=== PATIENT | female | born 2000 | race Caucasian/White ===

== ENCOUNTER 2019-11-15 15:40 | Inpatient (IN) | payer MEDICAID, SELFPAY ==
[2019-11-15] VITALS (32 sets, daily range): BP systolic 92–142; BP diastolic 52–96; PULSE 70–110; TEMP 36.3–37.4; O2SAT 82–100; BMI 37.5
--- NOTE | 2019-11-15 14:59 | US_ITS ---
STUDY: SECOND AND THIRD TRIMESTER OBSTETRICAL ULTRASOUND - LIMITED REASON FOR EXAM: Female, 19 years old NO CARE GROWTH AND TESS, PT RUPTURED PRIOR ULTRASOUND: None. TECHNIQUE: Transabdominal real-time exam with forman scale image documentation. TECHNICAL QUALITY: Adequate. FINDINGS: There is a single intrauterine fetus. The fetus is in a cephalic presentation. There is demonstrated cardiac activity with a heart rate of 165 bpm. There is a normal amniotic fluid volume. The largest amniotic fluid pocket measures 3.8 x 2.1 cm. The amniotic fluid index (TESS) is 5.8 cm. The placenta is anterior and not low lying. There are Grade 1 placental changes. The cervix is not visualized. BIOMETRY: BPD: 9.16 cm: 37 weeks, 2 days HC: 32.6 cm: 37 weeks, 1 days AC: 32.5 cm: 36 weeks, 4 days FL: 7.36 cm: 37 weeks, 5 days age by current US: 37 weeks, 2 days. MAX by current US: 12/04/2019. Estimated weight: 3067 grams, +/- 448 grams. US/OB Limited With Biometrics IMPRESSION: Single living intrauterine fetus of 37 weeks and 2 days with an MAX of 12/04/2019. Estimated weight of 3067 g +/- 448 g. Amniotic fluid index of 5.8 cm, less than the 3rd percentile for 37 weeks. Grade 1, anterior and not low lying placenta. Electronically Signed: Cornelia Clay MD at 16:42 EDT , Service support ,
[2019-11-15] MEDS: Lactated Ringers 1,000 ML 50 ML IV (15:10)
[2019-11-15 15:35] LABS: Mucous, Urine 0 SEEN /hpf (<or=2+); Red Blood Cells-Urine 0 SEEN /hpf (0-5)
[2019-11-15 15:38] LABS: Absolute Lymphocyte Count 1.73 X10^3/uL (0.83-4.51); Absolute Neutrophil Count 6.9 X10^3/uL (2.0-7.7); Basophil# 0.06 X10^3/uL; Basophil% 0.6 % (0-1); Eosinophil# 0.32 X10^3/uL; Eosinophils% 3.2 % (0-5); Hematocrit 34.3 % (37-47); Hemoglobin 10.7 g/dL (12.0-15.0); Lymphocyte # 1.73 X10^3/ul (4.0); Lymphocyte % 17.2 % (19-41); Mean Corp Hgb Conc 31.2 g/dL (32-36); Mean Corpuscular Volume 80.1 fL (81-99); Mean Platelet Vol. 11.1 fl (6.2-12.0); Monocyte# 1.02 X10^3/uL; Monocyte% 10.1 % (0-10); NRBC Flagged by Analyzer 0 % (0-5); Neutrophil # 6.85 X10^3/uL (2.7-7.7); Neutrophil % 68.2 % (47-70); Platelet Count 292 K/mm3 (150-450); RBC Distribution Width CV 15.7 % (11.6-14.6); RBC Distribution Width SD 44.4 fl (35.1-43.9); Red Blood Count 4.28 M/mm3 (4.2-5.4); White Blood Count 10.1 K/mm3 (4.4-11.0)
[2019-11-15 15:43] LABS: ROM Internal Control Test YES-OK TO RESULT pt. (Internal QC)
[2019-11-15 15:44] LABS: ROM Patient Test POSITIVE (Negative)
[2019-11-15 16:28] LABS: Amphetamine Urine VISTA NEGATIVE (<1000 ng/mL); Barbiturate Urine VISTA NEGATIVE (< 200 ng/mL); Benzodiazepine Urine VISTA NEGATIVE (< 200 ng/mL); Cocaine Urine VISTA NEGATIVE (< 300 ng/mL); Ecstacy Urine VISTA NEGATIVE (< 500 ng/mL); Methadone Urine VISTA NEGATIVE (< 300 ng/mL); PCP Urine VISTA NEGATIVE (< 25 ng/mL); THC Urine VISTA NEGATIVE (< 50 ng/mL); Vista UDS pH Range 7
[2019-11-15 16:34] LABS: Rubella IgG 6.7 IU/mL
[2019-11-15 16:42] LABS: Group B Strep DNA By PCR Negative (Negative); Internal Control PASS; Probe Check PASS; Specimen Processing Control PASS
[2019-11-15 17:24] LABS: Chlamydia Trachomatis by PCR Negative (Negative); Neisserai gonorrhoeae by PCR Negative (Negative); Probe Check PASS; Sample Adequacy Control PASS; Specimen Processing Control PASS
--- NOTE | 2019-11-15 18:30 | CASEMGMT ---
Social Work Assessment Labor and Delivery Unit Patient Address: [address], [place], [place] [address] Phone number: [phone] Date of Referral: 11.15.2019 Time of Referral: 1634 Referred By: Miguel Montero RN Date of Intervention: 11.15.2019 Time of Intervention: [id number] Reason for Referral: no care, possible adoption History obtained from: medical records and mother of baby (MOB) Dain Dickinson; reported father of baby (FOB) Davian Horvath also present for parts of conversation. Household composition: MOB currently lives with her mother and MOB?s twin brother. FOB lives with his parents. MOB and FOB spend time at both homes. Patient's parent/guardian status: MOB is 19 year old single female, and FOB is a 24 year old single male. Together for a little over a year. This will be the first child for both. Medical History: VEENA is G1, P0. No care. Estimated to be 37 weeks at time of presentation in labor. MOB reports she has always had irregular periods and in August the FOB encouraged MOB to take a test due to the length of time since last known period. MOB reports she took 8 drug store tests which were all positive. MOB reports one factor impeding VEENA from seeking out medical care was the COVID-19 pandemic and MOB?s fear of going to a doctor?s office. 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 No reported issues with reading, writing, or learning comprehension. Financial Status: VEENA works at a [employer]. 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 Infant Supplies: none in place. Childcare/Caregiver(s): intending to make an adoption plan for baby. Transportation: Both VEENA and FOB drive. Programs/Agencies Involved: No agency involvement. VEENA is self-pay currently. Behavioral Health Issues: Mental Health History: MOB reports history of depression in 9th and 10th grades, no treatment history. Denies any history of suicidal thoughts, plans, intent or past attempts. Denies thoughts of hurting others. MOB does endorse history of trauma as a child, no descriptions provided. Substance Use History: VEENA reports limited social use of alcohol, reports last use was in the summer of 2018 when MOB was at a wedding. MOB denies use of illicit drugs including marijuana, meth, heroin, cocaine, or prescription type pills. No tobacco use. Family History: MOB describes her mother as ?strange.? MOB reports her biological father is not in the picture and spent time in shelter. Drug Screens: maternal drug screen negative upon admission. Family/Social Stressors: Unplanned , with late knowledge of occurring in August. No care sought as shortly after realization of , MOB?s stepfather who raised the MOB , so then MOB dealing with grief. MOB then became anxious about going to a doctor?s office due to the COVID pandemic. No insurance, limited finances, no planning for the baby. The only person MOB has talked to about this is FOB. Support Systems: MOB reports FOB has been supportive to MOB and has informed MOB that will support MOB in whatever MOB wants to do in regards to the baby. MOB denies any form of domestic violence, control, intimidation, or coercion on this relationship. ASSESSMENT: Met first with MOB alone and then with MOB and FOB together. Rapport building and information gathering with MOB, explored MOB?s intentions for the baby after delivery. MOB reports desire to make an adoption plan for baby but has not done anything to prepare for this. MOB voices that while she loves children and has thought would be a mother someday, does not think she is prepared to be parent a child at this time. MOB also reports she knows that both she and FOB are not financially in a place to be able to provide for a child like would want to be able provide. MOB voiced that it is okay to have further conversations with FOB present. Reports FOB is supportive of decision for adoption planning. MOB held good eye contact, affect constricted, did smile just not a lot of range of emotion. MOB in labor and having contractions so to take this in account regarding affect. Interventions: Rapport building, information gathering, assessment of intention for baby after delivery with the MOB. Educated MOB and FOB, as well as answered questions related to starting adoption planning, and what to expect. Provided brochures on 4 different agencies, offered more if desired. (MOB declined further options). Emotional support, encouragement, reflection and listening offered. Updated nursing staff. PLAN: Social work to follow. Will see MOB again on 4.16.2020 for continued adoption planning if so desired by MOB. -AJIT Whitman, RIGGER APPRENTICE
[2019-11-15] MEDS: Oxytocin 30 units/NS 500 ml 30 UNITS/500 ML IV.SOLN IV (18:39)
[2019-11-15] MEDS: fentaNYL 100 MCG/2 ML Ampul IV (21:03)
[2019-11-15] MEDS: 0.9% Saline Lock 10 ML Syringe IV (21:05)
[2019-11-15] MEDS: Lactated Ringers 500 ML 999 ML IV ×2 (21:19→22:46)
[2019-11-15 21:25] LABS: Color, Urine Yellow (Yellow); Glucose, Dipstick Normal (Normal); Ketone-Dipstick Negative (Negative); Leukocyte Esterase-Dipstick 25 /ul (Negative); Nitrite-Dipstick Negative (Negative); Occult Blood-Urine Negative /ul (Negative); Protein-Dipstick Negative (Negative); Urine Bilirubin Dipstick Negative (Negative); Urine Clarity Cloudy (Clear); Urine Urobilinogen Normal (Normal)
[2019-11-15 21:36] LABS: Amorphous Sediment 1+; Bacteria RARE /hpf (None Seen); Squamous Epithelial Cells - UA 0-5 SEEN /hpf (5-10); White Blood Cells 0-5 SEEN /hpf (0-5); Yeast-Urine RARE /hpf (None Seen)
[2019-11-15] MEDS: fentaNYL-bupivacaine (epidural) 100 ML BAG EPIDURAL (22:30)
[2019-11-15 22:54] LABS: HIV - WCH Non-Reactive (Nonreactive); Hepatitis B Surface Antigen Non-Reactive (Nonreactive); Hepatitis C Antibody Non-Reactive (Nonreactive)
[2019-11-16] VITALS (32 sets, daily range): BP systolic 90–126; BP diastolic 53–75; PULSE 75–107; RESP 16–18; TEMP 36.2–36.9; O2SAT 98–100
[2019-11-16 00:57] LABS: Rapid Plasmin Reagin (RPR) NONREACTIVE (NONREACTIVE)
[2019-11-16] MEDS: Oxytocin 30 units/NS 500 ml 30 UNITS/500 ML IV.SOLN 334 UNITS IV (02:44)
--- NOTE | 2019-11-16 03:10 | HP.PCM_ITS ---
- Problem List (1) No care in current Status: Acute (2) Obesity affecting Status: Acute (3) Anemia affecting Status: Acute History Date of Admission: 11/16/19 Final MAX: 12/04/19 Final MAX Source: US >20 weeks Gestational age: 37 Weeks and 3 Days History of this : This is a 19 year-old, G [1], P [0], at 37 weeks 2 days gestational age by ultrasound done upon admission. Presented to labor and delivery with complaint of rupture of membranes at 0300 on 11/15/19. No care. Known since approximately 08/2019 by taking at home test. No contractions, vaginal bleeding or increased pain upon admission. Here with boyfriend. Planning adoption. Allergies latex Allergy (Verified 11/15/19 15:24) Swelling cat dander Adverse Reaction (Verified 11/15/19 15:25) Itching dog dander Adverse Reaction (Verified 11/15/19 15:25) Itching Home Medications: Home Medications Iron 325 tab PO QWEEK 11/15/19 Smoking Status: Never smoker Alcohol: None Substance Use Type: Alcohol Number of Fetus(es): 1 History Past Pregnancies: Past Pregnancies Delivery Date Name GA/ Weeks Outcome Route Wt Sex Labor Length Anesthesia Delivery Location Provider FOB Labs: Mom's Microbiology 11/15/19 Unknown Genital vaginal Group B Streptococcus Culture - Pending Mom's Problem List Problem Status Onset Code No care in current Acute O09.30 Obesity affecting Acute O99.210 Anemia affecting Acute O99.019 Mom's Labs & Results 11/15/19 11/15/19 11/15/19 15:10 15:10 15:10 WBC 10.1 RBC 4.28 Hgb 10.7 L Hct 34.3 L MCV 80.1 L MCH 25.0 L MCHC 31.2 L RDW Std Deviation 44.4 H RDW Coeff of Rashawn 15.7 H Plt Count 292 MPV 11.1 Immature Gran % (Auto) 0.700 Neut % (Auto) 68.2 Lymph % (Auto) 17.2 L [place] % (Auto) 10.1 H Eos % (Auto) 3.2 Baso % (Auto) 0.6 Absolute Neuts (auto) 6.9 Absolute Lymphs (auto) 1.73 Nucleated RBC % 0 Urine Color Urine Clarity Urine pH Ur Specific [place] Urine Protein Urine Glucose (UA) Urine Ketones Urine Occult Blood Urine Nitrite Urine Bilirubin Urine Urobilinogen Ur Leukocyte Esterase Urine RBC Urine WBC Ur Squamous Epith Cells Amorphous Sediment Urine Bacteria Urine Mucus Urine Yeast Vag Amniotic Fld Detect Urine Opiates Screen Urine Methadone Screen Ur Barbiturates Screen Ur Phencyclidine Scrn Ur Amphetamines Screen U Methamphetamin-MDMA U Benzodiazepines Scrn Urine Cocaine Screen U Cannabinoids Screen Ur Drug Screen Comment RPR NONREACTIVE Chlam trachomat DNA PCR Hep Bs Antigen Hepatitis C Antibody HIV 1&2 Antibody N.gonorrhoeae DNA (PCR) Rubella IgG Antibody 6.7 Group B Strep DNA Specimen Comment Blood Type Antibody Screen 11/15/19 11/15/19 11/15/19 15:10 15:10 15:10 WBC RBC Hgb Hct MCV MCH MCHC RDW Std Deviation RDW Coeff of Rashawn Plt Count MPV Immature Gran % (Auto) Neut % (Auto) Lymph % (Auto) [place] % (Auto) Eos % (Auto) Baso % (Auto) Absolute Neuts (auto) Absolute Lymphs (auto) Nucleated RBC % Urine Color Urine Clarity Urine pH Ur Specific [place] Urine Protein Urine Glucose (UA) Urine Ketones Urine Occult Blood Urine Nitrite Urine Bilirubin Urine Urobilinogen Ur Leukocyte Esterase Urine RBC Urine WBC Ur Squamous Epith Cells Amorphous Sediment Urine Bacteria Urine Mucus Urine Yeast Vag Amniotic Fld Detect Urine Opiates Screen NEGATIVE Urine Methadone Screen NEGATIVE Ur Barbiturates Screen NEGATIVE Ur Phencyclidine Scrn NEGATIVE Ur Amphetamines Screen NEGATIVE U Methamphetamin-MDMA NEGATIVE U Benzodiazepines Scrn NEGATIVE Urine Cocaine Screen NEGATIVE U Cannabinoids Screen NEGATIVE Ur Drug Screen Comment RPR Chlam trachomat DNA PCR Negative Hep Bs Antigen Hepatitis C Antibody HIV 1&2 Antibody N.gonorrhoeae DNA (PCR) Negative Rubella IgG Antibody Group B Strep DNA Negative Specimen Comment Not Reportable Blood Type A POSITIVE Antibody Screen NEGATIVE 11/15/19 11/15/19 11/15/19 15:10 15:10 15:10 WBC RBC Hgb Hct MCV MCH MCHC RDW Std Deviation RDW Coeff of Rashawn Plt Count MPV Immature Gran % (Auto) Neut % (Auto) Lymph % (Auto) [place] % (Auto) Eos % (Auto) Baso % (Auto) Absolute Neuts (auto) Absolute Lymphs (auto) Nucleated RBC % Urine Color Yellow Urine Clarity Cloudy Urine pH 7.0 Ur Specific [place] 1.010 Urine Protein Negative Urine Glucose (UA) Normal Urine Ketones Negative Urine Occult Blood Negative Urine Nitrite Negative Urine Bilirubin Negative Urine Urobilinogen Normal Ur Leukocyte Esterase 25 H Urine RBC 0 SEEN Urine WBC 0-5 SEEN Ur Squamous Epith Cells 0-5 SEEN Amorphous Sediment 1+ Urine Bacteria RARE Urine Mucus 0 SEEN Urine Yeast RARE Vag Amniotic Fld Detect POSITIVE H Urine Opiates Screen Urine Methadone Screen Ur Barbiturates Screen Ur Phencyclidine Scrn Ur Amphetamines Screen U Methamphetamin-MDMA U Benzodiazepines Scrn Urine Cocaine Screen U Cannabinoids Screen Ur Drug Screen Comment RPR Chlam trachomat DNA PCR Hep Bs Antigen Non-Reactive Hepatitis C Antibody Non-Reactive HIV 1&2 Antibody Non-Reactive N.gonorrhoeae DNA (PCR) Rubella IgG Antibody Group B Strep DNA Specimen Comment Blood Type Antibody Screen Course Did the patient receive No care? Labs Blood Type: A RH: POSITIVE RPR/VDRL/Syphilis collected on admission Rubella status Equivocal HbSAg Collected on Admission Chlamydia Negative Gonorrhea Negative HIV/AIDS Unknown Group B Strep: Negative Current Obstetrical History Gestational Diabetes No: unknown-no PNC Incompetent Cervix unknown-no PNC Infertility unknown-no PNC IUGR unknown-no PNC Macrosomia unknown-no PNC Hypertension/Pre-eclampsia unknown-no PNC Placenta Previa/Abruption unknown-no PNC PTL/PROM unknown-no PNC Uterine anomaly unknown-no PNC Oligohydramnios unknown-no PNC Polyhydramnios unknown-no PNC Multiple gestation No Past Medical History Asthma No Diabetes No Hypertension No Heart disease No Mitral valve prolapse No Neurologic/Seizure disorder/ No Migraines Kidney disease No Liver disease No Varicosities No Clotting disorders/Hx of DVT No Thyroid Dysfunction No Other medical diseases Yes: eczema Psychiatric disorders No Major trauma No Abnormal PAP smear No Sleep apnea No Mammogram in the last 2 years No Social History Marital Status: SINGLE Alleged father Davian Hx Smoking No Smoking Status Never smoker Substance Use Type Alcohol What date/time did you last last drank alcohol prior to August when she use any of the above? found out she was . only sips of alochol from what she can remember Expected Delivery Method: Spontaneous Vaginal Review of Systems Constitutional: Denies: Chills, Fever, Weight Change Eyes: Denies: Blurred vision HEENT: Denies: Head Aches, Sinus Congestion, Sinus Drainage Cardiovascular: Denies: Chest Pain, Palpitations Respiratory: Denies: Cough, Shortness of breath at rest, Sputum production Gastrointestinal: Denies: Abdominal Pain, Nausea, Vomiting Genitourinary: Denies: Dysuria Musculoskeletal: Denies: Joint Pain, Joint Tenderness Skin: Denies: Rash, Wounds Neurological: Denies: Numbness, Tingling, Focal weakness Psychiatric: Denies: Anxiety, Depression, Homicidal Ideations, Suicidal Ideations Hematologic/ Lymphatic: Denies: Easy Bruising, Easy Bleeding Physical Exam Vitals: Vital Signs Temp Pulse BP Pulse Ox 98.4 F 94 119/70 100 11/16/19 02:55 11/16/19 03:04 11/16/19 03:04 11/16/19 02:23 General: Alert, Oriented x3, No apparent distress HEENT: Atraumatic, Normocephalic Abdomen: Gravid Extremities:: No edema GREEN HIDE INSPECTOR: Normal external genitalia Estimated gestational size: Appropriate for gestational size Presentation: Cephalic Cervix Dilation (cm): 10 Station: 3 Effacement (%): 100 Assessment/Plan All Active Problems No care in current (Acute) Obesity affecting (Acute) Anemia affecting (Acute) This is a 19 year-old, G [1], P [0], at 37 weeks 2 Days gestational age. A:Premature Rupture of Membranes No Care Term P: 1) Admit to labor and delivery 2) Routine admission labs and PN labs. GBS negative 3) US revealed cephalic presentation montes, normal anatomy and placental location 4) Epidural for pain management 5) Planning adoption, seen by social security assessor to discuss plan 6) collaborative physician.
--- NOTE | 2019-11-16 03:13 | PCM.OPRPT ---
Problem List (1) No care in current Status: Acute (2) Obesity affecting Status: Acute (3) Anemia affecting Status: Acute (4) Vaginal delivery Status: Acute (5) First degree perineal laceration Status: Acute Vaginal Delivery Maternal Presentation: Spontaneous Rupture of Membranes Presented to labor and delivery with PROM. No care. Method of Induction: Pitocin - augmentation Amniotic Membrane Rupture Type: Spontaneous at home Amniotic Fluid Description: Clear Final MAX: 12/04/19 Final MAX Source: US >20 weeks - Admission ultrasound Gestational age: 37 Weeks and 3 Days Date of Procedure: 11/16/19 Pre-Operative Diagnosis: PROM, No care Post-Operative Diagnosis: Surgery/ Procedure Performed: Spontaneous Vaginal Delivery Type of Anesthesia: Epidural Description of Procedure: Progressed to complete with increased pressure and urge to push. Epidural for analgesia. of viable female infant over 1st degree perineal laceration. APGARS 7,9. Infant head delivered with nuchal arm and body forthcoming. Gentle downward traction without force. Placed on maternal abdomen skin to skin. Mouth and nares suctioned for secretions, spontaneous cry. Pitocin for active third stage management. Cord clamped and cut after pulsations ceased. Placenta delivered via beatrice, intact, 3 vessel cord. Perineum inspected and revealed first degree perineal laceration, repaired under epidural analgesia and 3.0 vicryl rapide. Well approximated and hemostasis achieved. Vaginal sweep completed. EBL 300ml, fundus firm. Sponge and instrument count correct. Mom and baby stable. Planning adoption, skin to skin at this time and to bottle feed baby. notified of delivery. Presentation: Vertex Placental Delivery Description: Spontaneous Placenta Disposition: [facility] Cord Vessel Description: 3 Vessels Cord Entanglement: None Estimated Blood Loss: 300 ml Infant A gender: Female (1 minute): 7 (5 minute): 9 Episiotomy Description: None Laceration: Perineal Extension/lac, 1st degree Medications given after delivery: IV Pitocin Complications: None
[2019-11-16] MEDS: 0.9% Saline Lock 10 ML Syringe IV (05:42)
[2019-11-16] MEDS: Ibuprofen 600 MG Tablet PO ×3 (09:25→22:15)
--- NOTE | 2019-11-16 17:30 | CASEMGMT ---
Social Work Labor and Delivery Unit Interventions occurring between 0915 and 1730 on 11.16.2019. Summary: Chart reviewed and noted that baby delivered shortly after 0230 this morning. Met with mother of baby (MOB) and father of baby (FOB) this morning. MOB continues to report intention to make an adoption plan. MOB provided choice of [facility] out of [place], [place]. Assisted parents with looking at online profiles of prospective adoptive parents. MOB and FOB took their time in going through various profiles, and after being given time to review to comfort level MOB and FOB agreed on a prospective adoptive couple named Rajesh. Called [facility], mother hotline at [phone] while in the room with MOB and FOB. Spoke with Brandy Gutierrez for initial referral. Received call back from Brandy updating that cargo worker Mary Darwin ([phone]) will be coming to the hospital to meet with MOB and FOB and start paperwork. Lisette Warren will be the document review attorney assigned to the parents. Brandy reports the prospective adoptive parents will also be arriving today to the hospital. MOB signed releases of information for self and for baby to [facility]. This investigative writer asked MOB to call the [place] Medicaid Benefits line at to get the process started for Medicaid. MOB agreed. Asked MOB to consider whether she wants to meet the adoptive parents, and both MOB and FOB would like to meet the prospective adoptive parents. Updated nursing staff and need for room for prospective adoptive parents. Prospective adoptive parents arrived to unit. Assisted with getting adoptive parents settled. Talked with MOB and FOB in MOB?s room to ascertain wishes on regarding adoptive parents having the baby in room before, or after, MOB and FOB able to meet with the adoptive parents. MOB and FOB want to meet adoptive parent first. Facilitated this meeting and allowed both sets of parents private time to get to know each other. Mary Granados from [facility] arrived to the hospital, met with MOB and FOB and then with prospective adoptive parents. Temporary custody agreement to [facility] signed by both parents. Mary provided copies of the custody forms and a care agreement allowing adoptive parents to be able to make decisions for baby to this investigative writer. Forms placed on chart. Assessment: MOB and FOB have appeared steadfast in decision to proceed with adoptive plan. Both parents took time to look at adoptive parent profiles and were thoughtful in some of the things they wanted to see in the adoptive family (such as a love of animals). MOB affect constricted but did brighten as the day went on. MOB did become teary eyed after choosing the adoptive parents and learning of the adoptive parents reaction to being chosen by MOB and FOB. MOB identified that the tears as happy tears. MOB and FOB both expressed that it was helpful to be able to meet the adoptive parents and has solidified intent to continue with adoption plan. Emotional support, encouragement, and reflection offered to parents throughout the day. Plan: Social work to follow and assist with support to family and continued collaboration for adoption planning process. Will see MOB again on 11-17-2019. Nursing and pediatrics updated. -FELIPE Whitman, TAILINGS MAN
--- NOTE | 2019-11-16 18:38 | PCM.PN.OB ---
Patient Problems: Active and Suspected Problems No care in current (Acute) Obesity affecting (Acute) Anemia affecting (Acute) Vaginal delivery (Acute) First degree perineal laceration (Acute) Subjective: pain well controlled, average lochia - Physical Exam Vitals/I&O's: Vital Signs Temp Pulse Resp BP Pulse Ox 98.2 F 82 16 116/68 98 11/16/19 16:03 11/16/19 16:03 11/16/19 16:00 11/16/19 16:03 11/16/19 11:29 Oxygen Delivery Method Room Air Weight: 93 kg Body Mass Index (BMI) 37.5 Intake and Output for Last 24 Hours 11/14/19 11/15/19 11/16/19 23:59 23:59 23:59 Intake Total 1406.67 / 1406.67 1109.46 / 1109.46 Output Total 500 / 500 300 / 300 Balance 906.67 / 906.67 809.46 / 809.46 General: Alert, Cooperative, No apparent distress Microbiology Past 72 Hours 11/15/19 Unknown Genital vaginal Group B Streptococcus Culture - Preliminary Laboratory Results 11/15/19 15:10: RPR NONREACTIVE 11/15/19 15:10: Hep Bs Antigen Non-Reactive, Hepatitis C Antibody Non-Reactive, HIV 1&2 Antibody Non-Reactive 11/15/19 15:10: Urine Color Yellow, Urine Clarity Cloudy, Urine pH 7.0, Ur Specific [place] 1.010, Urine Protein Negative, Urine Glucose (UA) Normal, Urine Ketones Negative, Urine Occult Blood Negative, Urine Nitrite Negative, Urine Bilirubin Negative, Urine Urobilinogen Normal, Ur Leukocyte Esterase 25 H, Urine RBC 0 SEEN, Urine WBC 0-5 SEEN, Ur Squamous Epith Cells 0-5 SEEN, Amorphous Sediment 1+, Urine Bacteria RARE, Urine Mucus 0 SEEN, Urine Yeast RARE Current Medications Acetaminophen (Tylenol) 1,000 mg PO Q8H PRN PRN PRN Reason: Pain Score 1-3/10 Bisacodyl (Dulcolax) 10 mg RECTAL UD PRN PRN Reason: If no BM Dibucaine (Dibucaine) 1 applic TOPICAL TID PRN PRN; Protocol PRN Reason: Discomfort Hydrocortisone (Hytone) 1 applic TOPICAL TID PRN PRN; Protocol PRN Reason: Discomfort Ibuprofen (Motrin) 600 mg PO Q6H PRN PRN PRN Reason: Pain Score 1-3/10 Last Admin: 11/16/19 16:01 Dose: 600 mg Documented by: Methylergonovine Maleate (Methergine) 0.2 mg IM X1 PRN PRN Reason: Excess bleeding/uterine atony Ondansetron HCl (Zofran) 4 mg IV Q4H PRN PRN PRN Reason: Nausea Senna/Docusate Sodium (Senokot-S, Genesis-Colace) 1 - 2 tablet PO DAILY PRN PRN PRN Reason: Constipation Simethicone (Mylicon) 80 mg PO PCHS PRN PRN Reason: Indigestion/Stomach pain Sodium Chloride () 5 - 15 ml IV UD PRN PRN Reason: SALINE FLUSH Last Admin: 11/16/19 05:42 Dose: 10 ml Documented by: Medical Necessity - Tobacco Use Smoking Status: Never smoker Assessment/Plan All Active Problems No care in current (Acute) Obesity affecting (Acute) Anemia affecting (Acute) Vaginal delivery (Acute) First degree perineal laceration (Acute) PPD#0 s/p likely d/c home tomorrow plans to release for adoption
--- NOTE | 2019-11-16 23:00 | NURSING ---
Late Entry 11/15/2019 Epidural times Called:[address] Hernandez at bedside:1109 Time out: 2210 Test dose:2230 Pump: 2242 Laying/left lateral: 2237
[2019-11-17] VITALS (10 sets, daily range): BP systolic 99–114; BP diastolic 56–61; PULSE 70–90; RESP 14–16; TEMP 36.2–36.8; O2SAT 99
[2019-11-17] MEDS: Ibuprofen 600 MG Tablet PO ×2 (04:11→11:35)
--- NOTE | 2019-11-17 04:11 | NURSING ---
pt voiding and missed hat. pt also states she does not feel dizzy or lightheaded, despite slightly low BP as compared with her baseline.
[2019-11-17 04:31] LABS: Hematocrit 29.7 % (37-47); Hemoglobin 9.2 g/dL (12.0-15.0); Mean Corpuscular Hgb 25.1 pg (27.0-32.0); Mean Corpuscular Volume 81.1 fL (81-99); Mean Platelet Vol. 10.4 fl (6.2-12.0); Platelet Count 237 K/mm3 (150-450); RBC Distribution Width CV 15.6 % (11.6-14.6); Red Blood Count 3.66 M/mm3 (4.2-5.4)
[2019-11-17] MEDS: Acetaminophen 500 MG Tablet 1000 MG PO (09:17)
--- NOTE | 2019-11-17 10:49 | PCM.PN.OB ---
Patient Problems: Active and Suspected Problems No care in current (Acute) Obesity affecting (Acute) Anemia affecting (Acute) Vaginal delivery (Acute) First degree perineal laceration (Acute) Subjective: Patient is doing well. Having some cramping and vaginal soreness. Denies lightheadedness, dizziness, chest pain, shortness of breath, leg pain. Ambulating voiding without difficulty. Lochia normal. - Physical Exam Vitals/I&O's: Vital Signs Temp Pulse Resp BP Pulse Ox 98.0 F 70 16 114/61 99 11/17/19 09:22 11/17/19 09:22 11/17/19 09:22 11/17/19 09:22 11/17/19 09:22 Oxygen Delivery Method Room Air Weight: 205 lb 0.478 oz Body Mass Index (BMI) 37.5 Intake and Output for Last 24 Hours 11/15/19 11/16/19 11/17/19 23:59 23:59 23:59 Intake Total 1406.67 / 1406.67 1109.46 / 1109.46 Output Total 500 / 500 800 / 800 Balance 906.67 / 906.67 309.46 / 309.46 General: Alert, No apparent distress HEENT: Atraumatic Abdomen: Non-Distended Extremities: No edema Skin: No rashes Neurological: Neuro grossly intact Psych/Mental Status: Normal Affect, Appropriate Microbiology Past 72 Hours 11/15/19 Unknown Genital vaginal Group B Streptococcus Culture - Preliminary Laboratory Results 11/17/19 04:15: WBC 11.0, RBC 3.66 L, Hgb 9.2 L, Hct 29.7 L, MCV 81.1, MCH 25.1 L, MCHC 31.0 L, RDW Std Deviation 45.0 H, RDW Coeff of Rashawn 15.6 H, Plt Count 237, MPV 10.4 Current Medications Acetaminophen (Tylenol) 1,000 mg PO Q8H PRN PRN PRN Reason: Pain Score 1-3/10 Last Admin: 11/17/19 09:17 Dose: 1,000 mg Documented by: Bisacodyl (Dulcolax) 10 mg RECTAL UD PRN PRN Reason: If no BM Dibucaine (Dibucaine) 1 applic TOPICAL TID PRN PRN; Protocol PRN Reason: Discomfort Hydrocortisone (Hytone) 1 applic TOPICAL TID PRN PRN; Protocol PRN Reason: Discomfort Ibuprofen (Motrin) 600 mg PO Q6H PRN PRN PRN Reason: Pain Score 1-3/10 Last Admin: 11/17/19 04:11 Dose: 600 mg Documented by: Methylergonovine Maleate (Methergine) 0.2 mg IM X1 PRN PRN Reason: Excess bleeding/uterine atony Ondansetron HCl (Zofran) 4 mg IV Q4H PRN PRN PRN Reason: Nausea Senna/Docusate Sodium (Senokot-S, Genesis-Colace) 1 - 2 tablet PO DAILY PRN PRN PRN Reason: Constipation Simethicone (Mylicon) 80 mg PO PCHS PRN PRN Reason: Indigestion/Stomach pain Sodium Chloride () 5 - 15 ml IV UD PRN PRN Reason: SALINE FLUSH Last Admin: 11/16/19 05:42 Dose: 10 ml Documented by: Medical Necessity - Tobacco Use Smoking Status: Never smoker Assessment/Plan All Active Problems No care in current (Acute) Obesity affecting (Acute) Anemia affecting (Acute) Vaginal delivery (Acute) First degree perineal laceration (Acute) Patient is day 2 after a vaginal delivery. She is doing well and meeting all milestones to go home. To work with social work today to complete adoption papers. Reviewed discharge instructions with patient. To follow-up for virtual visit in 1 week and then 6 weeks .
--- NOTE | 2019-11-17 10:51 | DCINST_ITS ---
Discharge Diet: No Restrictions Discharge Activity: May Drive, May Shower, May Take a Tub Bath Return to work on:: 11/23/19 - If doing well at 1 week visit May resume sexual activity in: 6 weeks Weight Bearing Status: Weight bearing as tolerated Lifting Restrictions: No lifting greater than 20 lbs Call your doctor if you observe: Fever of 101 or Higher, Inability to urinate, Inability to have a bowel movement, Using more than one pad per hour, Shortness of breath, Dizziness, Chest pain, Increased palpitations (irregular heartbeat), Calf discomfort, Uncontrolled pain Cleanse incision/area with: Soap & Water Additional Instructions: If you experience any of the following, contact your healthcare provider. * Bleeding that soaks a pad every hour for 2 hours * Fever 100.4 or higher * Unrelieved incision or abdominal pain * Swelling, redness, discharge or bleeding from your incision or episiotomy site * Your incision begins to separate * Problems urinating (including inability to urinate or burning while urinating). * Visual changes * Severe headache * Flu-like symptoms * Pain or redness in one of both of your breasts * Pain, warmth, tenderness or swelling in your legs, especially the calf area * Frequent nausea and vomiting * Symptoms of depression or anxiety If you experience any of the following, call 911 or go to the nearest Emergency Room. * Chest pain * Problems breathing * Seizure activity * Partial or complete paralysis of a body part, slurred speech, weakness or drooping of the face, or a sudden inability to walk or hold your balance Allergies/Adverse Reactions: Allergies latex Allergy (Verified 11/15/19 15:24) Swelling cat dander Adverse Reaction (Verified 11/15/19 15:25) Itching dog dander Adverse Reaction (Verified 11/15/19 15:25) Itching Medications to take at Discharge Iron 325 tab PO QWEEK 11/15/19 Please Follow Up With: Hanh Rankin CNM When: 1 week and 6 weeks - virtual visits or phone calls Primary Care Physician: Amol Peres MD [Primary Care Provider] - Test Results: Test results from this visit will be discussed in further detail at your follow- up appointment, if applicable. Proposed Discharge Date: 11/17/19
--- NOTE | 2019-11-17 13:11 | CASEMGMT ---
Social Work Labor and Delivery Summary: Met with mother of baby (MOB) Dain Dickinson and father of baby (FOB) Davian Horvath this date. FOB left the room to allow for private conversation as this commercial loan underwriter completed [place] Depression Screen. Refer to attached link for details of assessment. MOB's score is low at a 3. Reviewed with MOB risk and importance of seeking out help, support, and self-care. MOB reports continued commitment to following through with adoption plan. MOB reports physically to feel tired and looking forward to sleeping in own bed, but emotionally to feel like doing okay. MOB report to feel that will not need any mental health counseling services, but that it is nice to know there are options and who MOB can call. Note, [facility] vegetable harvest worker Mary Granados had informed MOB on 11.16.2019, that [facility] does offer post adoption counseling if MOB would ever need or desire said services, but also let MOB know that would have choices other than [facility] if MOB so desired. Reviewed with MOB the plan for baby's discharge and confirmed that MOB is okay if baby leaves the hospital with the prospective adoptive parents at discharge. MOB reports agreement and thought process that this will make things smoother for all if baby can just leave with the prospective adoptive parents. Discussed with MOB as to what name she wants on the complimentary certificate to take home. MOB chose to go with Soraida Horvath (first and last name are names chosen by adoptive parents, and blessed by MOB and FOB). FOB back to room near end of social work visit. Both MOB and FOB report that had a nice visit with adoptive parents last evening, for 2 hours and this was helpful to get to know each other as well as discuss plan for level of openness for the adoption plan. MOB signed Permission for Release of infant this date, authorizing that via [facility] agency it is okay to release baby to the adoptive parents as per the care agreement and designated physical living situation of baby after leaving the hospital. Form placed on baby's chart. Assessment: MOB alert, oriented, bright affect, smiling at appropriate times, and relaxed motor activity. MOB appearing relaxed today and engaged in conversation with social contact worker. MOB and FOB showed this commercial loan underwriter pictures of their dogs and and talked of future plans that included keeping in contact with the adoptive parents. MOB accepted resources on mental health and a [facility] resource packet. No other services requested or indicated from MOB's perspective to go home. Plan: MOB discharging home today and has made an adoption plan her baby, and will continue to work with [facility] to finalize plans next week. No other services requested or indicated. -FELIPE Whitman , PATENT SOLICITOR
[2019-11-18 23:16] VITALS: TEMP 37.5
[2019-11-18 23:22] VITALS: BP 131/85; PULSE 94
[2019-11-18 23:23] VITALS: PULSE 95; O2SAT 97
[2019-11-18 23:38] VITALS: BP 137/82; PULSE 93
[2019-11-18 23:53] VITALS: BP 134/90; PULSE 93
== END 2019-11-17 14:55 | disposition home or self-care (01) | DRG 805 ==
LOC: WPOUT 16:02 → WP 16:03
PROVIDERS: Obstetrics & Gynecology; Admitting Provider Advanced Practice Midwife; PCP Pediatrics; Visit Provider Advanced Practice Midwife
DX: O42.913 Preterm premature rupture of membranes, unspecified as to length of time between rupture and onset of labor, third trimester (principal); O60.14X0 Preterm labor third trimester with preterm delivery third trimester, not applicable or unspecified; Z37.0 Single live birth; O70.0 First degree perineal laceration during delivery; Z3A.37 37 weeks gestation of pregnancy; Z91.040 Latex allergy status
CPT/HCPCS: 59025; 59050; 76816; 80307; 81001; 84112; 85025; 85027; 86592; 86703; 86762; 86803; 86850; 86900; 86901; 87081; 87340; 87491; 87591; 87653; 99218; J7120; A4216; G0378